=== PATIENT | female | born 1955 | race Hispanic/Latino ===

== ENCOUNTER → 2021-12-12 | Outpatient (CLI) | payer OTHER | END | disposition home or self-care (01) | LOC: SHCH 07:59 → EDSEX 07:59 → EDUNIT# 08:30 | PROVIDERS: ATTEND Internal Medicine | DX: I08.2 Rheumatic disorders of both aortic and tricuspid valves (principal); I48.91 Unspecified atrial fibrillation; I11.9 Hypertensive heart disease without heart failure | CPT/HCPCS: 93306 ==

== ENCOUNTER → 2022-01-29 | Outpatient (CLI) | payer OTHER | END | disposition home or self-care (01) | LOC: EDSEX → EDUNIT# 01-23 20:30 → SLP 20:13 | PROVIDERS: ATTEND Internal Medicine | DX: G47.33 Obstructive sleep apnea (adult) (pediatric) (principal) | CPT/HCPCS: 95810 ==

== ENCOUNTER → 2022-05-07 | Outpatient (CLI) | payer OTHER | END | disposition home or self-care (01) | LOC: EDSEX → EDUNIT# 01-30 20:30 → SLP 19:37 | PROVIDERS: ATTEND Internal Medicine | DX: G47.33 Obstructive sleep apnea (adult) (pediatric) (principal) | CPT/HCPCS: 95811 ==

== ENCOUNTER 2023-03-17 05:39 | Day surgery (SDC) | payer OTHER ==
[2023-03-17] VITALS (11 sets, daily range): BP systolic 127–162; BP diastolic 61–78; PULSE 49–55; RESP 12–17
[~2023-03-17] VITALS: Ht 167.6 cm; Wt 100.3 kg
[~2023-03-17 05:39] MED LIST: CALC-898 PO; LOSA50TA64 PO; METO25TA6 PO; RIVA20TA PO; SIME80TA78 PO
[2023-03-17] MEDS ORDERED: 0.9%NACL 1000ML 1,000 ML IV ONE (06:58)
[2023-03-17] MEDS ORDERED: PROPOFOL 10 MG/ML 20ML VIAL IV ONE (09:00)
== END 2023-03-17 10:30 | disposition home or self-care (01) ==
LOC: DAH 05:39 → ENDO 05:39
PROVIDERS: ATTEND Internal Medicine Gastroenterology
DX: R93.5 Abnormal findings on diagnostic imaging of other abdominal regions, including retroperitoneum (principal); R14.0 Abdominal distension (gaseous); K86.9 Disease of pancreas, unspecified; K21.00 Gastro-esophageal reflux disease with esophagitis, without bleeding; K80.20 Calculus of gallbladder without cholecystitis without obstruction; K64.0 First degree hemorrhoids; K57.30 Diverticulosis of large intestine without perforation or abscess without bleeding; I10 Essential (primary) hypertension; E66.9 Obesity, unspecified; Z90.710 Acquired absence of both cervix and uterus; Z79.01 Long term (current) use of anticoagulants; Z79.899 Other long term (current) drug therapy; Z68.35 Body mass index [BMI] 35.0-35.9, adult
CPT/HCPCS: 43237; J7030 ×2; J2704; A4620; A4215 ×2; A4223; A7002; A4222; A4221; A4663; A4606; 43259; J3490